=== PATIENT | male | born 1980 | race Caucasian/White ===

== ENCOUNTER 2021-08-27 07:35 | Outpatient (CLI) | payer BC, SELFPAY ==
[2021-08-27 08:11] VITALS: BP 168/98; PULSE 103; RESP 16; TEMP 36.6; O2SAT 98; BMI 28.7
[2021-08-27 08:40] VITALS: BP 144/86; PULSE 73; RESP 16; TEMP 36.5; O2SAT 98
[2021-08-27 09:26] VITALS: BP 138/88; PULSE 82; RESP 16; TEMP 36.8
== END 2021-08-27 07:36 | disposition home or self-care (01) ==
LOC: OPS 07:38
PROVIDERS: PCP Family Medicine; Visit Provider Nurse Practitioner Family
DX: U07.1 COVID-19 (principal)
CPT/HCPCS: 96365